=== PATIENT | female | born 1950 | race Caucasian/White ===

== ENCOUNTER 2017-04-04 20:28 | Observation (INO) | payer OTHER ==
[~2017-04-04] VITALS: Ht 167.6 cm; Wt 97.3 kg
[2017-04-04 20:43] VITALS: BP 204/114; PULSE 72; RESP 18; O2SAT 98
[2017-04-04] MEDS ORDERED: Labetalol 5 mg/mL 4 mL Inj IV PRN (21:55)
--- NOTE | 2017-04-04 22:02 | ED.REPORT ---
HPI-General Illness Date of Service Apr 04, 2017 ED Provider: Ry Robles MD A 66 year old female with a history of previous hypertension presents to the ED complaining of hypertension. The pt had a TIA yesterday characterized by left- sided facial numbness and some difficulty speaking. This lasted for approx 30 mins to one hour, but then she went to sleep. Upon waking, the symptoms had resolved. No notable alleviating or exacerbating factors. She had no other associated symptoms at that time. Today, however, she did notice that her blood pressure was elevated. In the ED, she now complains of a diffuse, mild, frontal headache (started gradually this afternoon), chest pressure, and one episode of diarrhea. The pt denies constipation, abdominal pain, fevers, chills , focal weakness, neck stiffness, shortness of breath or vision changes. Nursing Notes Stated Complaint: TIA,HIGH BP Chief Complaint: General Complaint Nursing Notes Reviewed: Yes Allergies: Coded Allergies: lisinopril (Verified Allergy, Unknown, 04/04/17) General Time Seen by MD: 21:47 Chief Complaint Other (Hypertension) Hx Obtained From: Patient Arrived By: Walk-in Sudden in Onset?: No Onset Occurred: 1 day ago Symptom Duration: Since onset Location: : Head Severity: Current: Pain level 3 out of 10 Recent Healthcare: No recent doctor visit, No recent hospitalization Similar Sx Previous: No Past Medical History Past Medical History hypertension Past Surgical History Reports: Family History cardiac disease (mother, unknown age) denies family history of bleeding disorders Smoking History Unknown if Ever Smoker Social History Alcohol Use: "Social" Other Social History: Good social support Ambulatory Status Independent Review of Systems difficulty speaking chest pressure hypertension denies neck stiffness Full Review of Systems Constitutional: Denies: Chills, Fever Eyes: Denies: Diplopia Ears / Nose / Throat: Denies: Throat pain, Throat swelling Respiratory: Denies: Non-productive cough, Shortness of breath Cardiovascular: Denies: Palpitations GI: Reports: Diarrhea, Denies: Abdominal pain, Constipation, Nausea, Vomiting Musculoskeletal: Denies: Back pain, Neck pain Hematologic: Denies Bruising Skin: Denies Itching, Denies Rash Allergy / Immune: Denies: Hives, Itching Neurologic: Reports: Headache, Numbness (left facial), Vision change, Denies: Focal weakness, Seizure, Shaking, Weakness Psychiatric: Denies: Change mental status Complete sys rev & neg: except as marked. Physical Exam Constitutional: Well-developed, well-nourished. Not diaphoretic. Head: Normocephalic and atraumatic. Mouth/Throat: Oropharynx is clear and moist. No oropharyngeal exudate. Eyes: EOM are normal. Pupils are equal, round, and reactive to light. Neck: Supple, no tracheal deviation. Cardiovascular: Normal rate, regular rhythm. Equal and intact distal pulses throughout. Pulmonary/Chest: Effort normal and breath sounds normal. No respiratory distress. Abdominal: Soft. No distension. There is no tenderness, rebound, or guarding. Bowel sounds present. Musculoskeletal: Range of motion grossly intact, moving all extremities. No edema or tenderness appreciated. Neurological: AOx3. Grossly nonfocal exam. Strength and sensation intact and equal to bilateral upper and lower extremities. Normal gait. Skin: Warm and dry, no rashes or pallor appreciated. Psychiatric: Appropriate mood and affect. Behavior appears normal. Vital Signs Vital Signs Date Time Temp Pulse Resp B/P Pulse Ox O2 Delivery O2 Flow Rate FiO2 04/05/17 00:15 73 14 189/117 96 Room Air 04/04/17 22:39 77 184/97 98 Room Air 04/04/17 20:43 36.6 72 18 204/114 98 Room Air Initial VS: Reviewed Interpretation & Diagnostics Lab Results Interpretation Result Diagram: 04/04/17224004/04/172240 Test 04/04/17 22:41 04/04/17 23:32 White Blood Count 4.3th/mm3 (3.8-10.1) Red Blood Count 4.60mil/mm3 (3.90-5.20) Hemoglobin 14.0g/dL (12.0-15.6) Hematocrit 41.4% (35.0-46.0) Mean Corpuscular Volume 90.0fL (81-100) Mean Corpuscular Hemoglobin 30.4pg (27.0-35.0) Mean Corpuscular Hemoglobin Concent 33.8% (32.0-37.0) Red Cell Distribution Width 12.8% (12.3-15.4) Platelet Count 176bil/L (150-400) Neutrophils (%) (Auto) 45.5% (40-74) Lymphocytes (%) (Auto) 40.7% (14-46) Monocytes (%) (Auto) 11.5% (4-12) Eosinophils (%) (Auto) 1.9% (0-5) Basophils (%) (Auto) 0.2% (0-3) Prothrombin Time 10.0sec (8.1-12.5) Prothromb Time International Ratio 0.94ratio Activated Partial Thromboplast Time 27.1sec (22.8-33.0) Sodium Level 139mEq/L (134-144) Potassium Level 3.7mEq/L (3.5-5.2) Chloride Level 101mEq/L (97-108) Carbon Dioxide Level 23mmol/L (18-29) Blood Urea Nitrogen 22mg/dL (8-27) Creatinine 0.63mg/dL (0.57-1.00) Estimat Glomerular Filtration Rate 136mL/min (>59) Glucose Level 100mg/dL (60-99) Calcium Level 9.5mg/dL (8.5-10.1) Total Bilirubin 0.3mg/dL (0.0-1.2) Aspartate Amino Transf (AST/SGOT) 30U/L (0-50) Alanine Aminotransferase (ALT/SGPT) 38U/L (0-32) Alkaline Phosphatase 76U/L (25-165) Troponin T 0.010ug/L (0.0-0.011) Total Protein 6.8g/dL (6.4-8.4) Albumin 4.2g/dL (3.4-5.0) Urine Color Straw (YELLOW) Urine Appearance Slightly cloudy Urine pH 6.0 (5.0-8.0) Urine Specific Lawrence 1.017 (1.003-1.035) Urine Protein Negativemg/dL (NEG,TRACE) Urine Glucose (UA) Negativemg/dL (NEGATIVE) Urine Ketones Negativemg/dL (NEGATIVE) Urine Occult Blood Trace (NEGATIVE) Urine Nitrite Negative (NEGATIVE) Urine Bilirubin Negative (NEGATIVE) Urine Urobilinogen Normalmg/dL (NORMAL) Urine Leukocyte Esterase Negative (NEGATIVE) Urine RBC 0-2/hpf (0-2) Urine WBC 0-5/hpf (0-5) Urine Epithelial Cells Many/hpf (NONE-MOD) Urine Crystals None seen (NONE SEEN) Urine Bacteria Few/hpf (NONE-FEW) Urine Hyaline Casts None/lpf (NONE) Urine Granular Casts None seen (NONE SEEN) Urine Waxy Casts None seen (NONE SEEN) Urine Red Blood Cell Casts None seen (NONE SEEN) Urine White Blood Cell Casts None seen (NONE SEEN) Urine Mucus Present (None Seen) Urine Trichomonas None seen (NONE SEEN) Urine Yeast None (NONE SEEN) Urinalysis Comment None Urine Culture Reflexed Not indicated ECG Interpretation ECG Interpretation: sinus rhythm with a rate of 65 LVH with secondary repolarization abnormality Time: 21:20 Interpreted by: ED physician X-Ray Chest Interpretation Chest Xray Interpretation: no acute cardiopulmonary process Interpretation / Wet Read by: Wet read ED physician CT Head Interpretation No acute intracranial processes. Interpretation / Wet Read by: Interpret - Radiologist Re-Eval/Medical Decision Med Decision/Clinical Course In summary, 66-year-old female presenting to the ED for evaluation of left- sided facial numbness and difficulty speaking last night, since resolved. Differential includes CVA, TIA, metabolic abnormality, hypertensive emergency, Alcaraz's palsy, temporal arteritis. Patient's left-sided facial numbness and difficulty speaking have completely resolved upon arrival here in the ED. She has a grossly normal neurologic examination. No temporal artery tenderness, no vision changes; no clinical suspicion for temporal arteritis at this time. She has had some mild chest pressure here in the ED; troponin negative, EKG demonstrates sinus rhythm with no acute ischemic changes - she does have what appears to be LVH with a secondary repolarization abnormality. CBC and CMP grossly within normal limits. Urinalysis with no evidence of infection. Chest x-ray negative. Head CT negative for acute intracranial abnormality. She was hypertensive here in the ED; order for labetalol placed. Patient also given morphine for symptoms with some improvement. Given the above, plan admission for further workup, management, and evaluation. Patient agreeable to the plan as stated, no further questions. Time of Eval: 23:51 Re-Evaluation/Progress Note: Pt rechecked, who is resting. The diagnosis and plan for admission are discussed. The pt understands and agrees with the plan. All questions are addressed at this time. Consultation : Referral / Consult Name: Marni Whitfield DO Consulted With: Hospitalist Call Returned at: 23:43 Java Scala Developer: Agrees with eval, Agrees with plan, Accepts admit Note: Spoke with Dr. Whitfield, hospitalist, regarding pt's case. Dr. Whitfield agrees with the evaluation and agrees to admit the pt. Counseled Regarding: Diagnosis, Lab results, Need for admission Discharge & Departure Primary Impression: TIA (transient ischemic attack) Transient cerebral ischemia type: unspecified Qualified Code: G45.9 - Transient cerebral ischemic attack, unspecified Disposition: ADMITTED TO HOSPITAL Discharge Condition All VS Reviewed: Yes Condition: Stable Referrals: [facility] Scribe Attestation Portions of this note were transcribed by Tyrell Duarte. I, Dr. Robles personally performed the history, physical exam and medical decision-making; I reviewed and confirmed the accuracy of the information in the transcribed note. copies to: [facility] Ry Robles MD Apr 04, 2017 22:02 TYRELL DUARTE Apr 04, 2017 23:49
[2017-04-04 22:39] VITALS: BP 184/97; PULSE 77; O2SAT 98
[2017-04-04 22:45] LABS: BASOPHILS % (AUTO) 0.2 % (0-3); EOSINOPHILS % (AUTO) 1.9 % (0-5); MONOCYTES % (AUTO) 11.5 % (4-12); Mean Corpuscular Hemoglobin 30.4 pg (27.0-35.0); NEUTROPHILS % (AUTO) 45.5 % (40-74); Platelet Count 176 bil/L (150-400)
[2017-04-04 23:02] LABS: INR 0.94 ratio
[2017-04-04 23:12] LABS: TROPONIN T 0.01 ug/L (0.0-0.011)
[2017-04-05] VITALS (12 sets, daily range): BP systolic 142–189; BP diastolic 82–117; PULSE 60–77; RESP 14–18; O2SAT 94–97
[2017-04-05 00:14] LABS: APPEARANCE,URINE SLIGHTLY CLOUDY (CLEAR,HAZY); COLOR,URINE STRAW (YELLOW)
[2017-04-05 00:16] LABS: OCCULT BLOOD,URINE TRACE (NEGATIVE); UROBILINOGEN,URINE NORMAL (NORMAL)
[2017-04-05] MEDS ORDERED: Polyethylene Glycol (PEG) 17 Gm Powder PO PRN (01:35)
[2017-04-05] MEDS ORDERED: Labetalol 5 mg/mL 20 mL Inj IVPUSH PRN (01:35)
[2017-04-05] MEDS ORDERED: Ondansetron 2 mg/mL 2 mL Inj IVPUSH PRN (01:35)
[2017-04-05] MEDS ORDERED: Alum-Mag Hydrox-Simeth 30 mL Suspension PO PRN (01:35)
[2017-04-05] MEDS: 0.9% Sodium Chloride 1,000 ML IV SCH ×2 (02:20→11:01)
[2017-04-05] MEDS: Heparin 5,000 Unit/mL Inj SUBQ SCH ×3 (02:21→16:58)
[2017-04-05] MEDS ORDERED: CITA40TA PO (02:58)
--- NOTE | 2017-04-05 03:16 | NUR ---
Admit Patient arrived to [facility] around 0210 via wheelchair. Able to stand and walk to OSC bed independently. A&Ox4, answering questions appropriately. Neuro checks WNL, equal movement in extremities. Face symmetrical. Speech clear. Swallow screen performed and passed. Patient placed on puree diet/ HTL per protocol. Swallow evaluation to be performed in AM. Denies numbness/tingling. PVR performed= 53 ml. HOB at 30 degrees. Admit done. Part of med rec completed, need to follow up on Levothyroxine dose in AM. Tele placed- SR 60s. Blood sugar= 121.
--- NOTE | 2017-04-05 05:34 | PCM.HPMED ---
Subjective Date of Service Apr 05, 2017 Primary Provider: Admitting Physician: Marni Whitfield DO Primary Care Physician: Nathan Attending Physician: Jackson Fields MD Chief Complaint: Left-sided numbness, hypertension History of Present Illness: 66-year-old woman with previous history of hypertension reported to the emergency department after experiencing left-sided face numbness and difficulty speaking and mild confusion yesterday, went to sleep and after waking up noticed the symptoms are nearly completely resolved, she discussed with her friend in the medical field her symptoms he told her that it sounded like she had a TIA, patient read what TIA was in immediately came to the emergency department. She additionally states that she had elevated blood pressure at home which is unusual for her. She had new onset diffuse mild frontal headaches , worsening of her tinnitus, some tightness in her chest, one episode of diarrhea. Patient denies any constipation, abdominal pain, fever chills, focal weakness, neck stiffness, shortness of breath, or vision changes. Previous unilateral symptoms have resolved. Vitals on presentation 36.6, 72, 18, 204/14 Hematology is unremarkable, chemistry unremarkable Troponin 0.01 INR 0.94 Urinalysis was negative for signs of infection, trace "occult blood", 0-2 red blood cells on microscopy Chest x-ray and head CT noncontrast did not show any acute process. EKG rate 65, sinus rhythm, normal axis, TN interval 159, QTC 393, no signs of acute ischemia or infarct." LVH with secondary repolarization abnormality" Patient was admitted for transient ischemic attack and uncontrolled hypertension. Review of Systems: A comprehensive review of systems was conducted with the patient and found to be negative except as above in the history of presenting illness. Allergies Coded Allergies: bee venom protein (honey bee) (Verified Allergy, Unknown, 04/05/17) lisinopril (Verified Allergy, Unknown, 04/04/17) Home Medications Citalopram 40 mg daily Levothyroxine unknown dose PMH Hypertension Depression Tinnitus Surgical History "Tummy tuck" 20 years ago 33 years ago Family History Mother had cancer "all over" at age 86 Father had lung cancer and at age 65 Social History Hx Alcohol Use: Yes (1-2 glasses of wine every night ) Hx Substance Use: No Hx Tobacco Use: Yes Smoking Status: Former Smoker Exam Vital Signs Vital Sign - Last Date Time Temp Pulse Resp B/P Pulse Ox O2 Delivery O2 Flow Rate FiO2 04/05/17 02:26 66 04/05/17 02:10 36.7 16 168/97 97 Room Air Exam General: Sitting at edge of bed no apparent distress. HEENT: Normocephalic, atraumatic, EOMI grossly, Cardiovascular: Regular rate and rhythm, no clicks murmurs rubs, peripheral pulses 2/4 equal bilaterally Pulmonary: Clear to auscultation bilaterally, no W/R/R. Abdominal: Soft to palpation, bowel sounds present 4, no hepatosplenomegaly. Negative rebound. Extremities: No edema appreciated. No tenderness, asymmetry. Neuro: Neurologically grossly intact, strength is equal bilaterally upper and lower extremities. Sensation grossly intact to face upper and lower extremities. Reflexes 2/4 patellar. Cranial nerves II through XII intact. MSK: Able to move extremities on their own volition, strength 5 out of 5 equal bilaterally to upper and lower extremities. Psychiatric: Alert and oriented 4, appropriate and congruent affect. Lab and Diagnostics Result Diagram: 04/04/17224004/04/172240 Assessment & Plan 66-year-old woman with history of hypertension had episodes of unilateral, left- sided facial numbness, some weakness in the left side of her body, confusion, and difficulty speaking, presented after nearly resolution of the symptoms, found to be hypertensive. She is admitted for TIA evaluation. Acute transient ischemic attack, POA, active Left-sided weakness, facial numbness, dizziness, history of hypertension CT without contrast negative MR stroke protocol tomorrow morning Carotid duplex ultrasound tomorrow morning Echocardiogram tomorrow morning Atorvastatin 10 mg by mouth ASA 324 mg by mouth daily, first dose given in ER HGBA1c and lipid panel pending Acute uncontrolled hypertension, chronicity unknown, present on admission, improving Initially 204/114, decrease to be stable in the 160s over 90s No antihypertensives given in the emergency department, patient received morphine. Re-evaluate in the morning, no sign of end organ damage, Allergy to Lisinopril reported. Chronic depression, present on admission, active Continue home Celexa 40 mg daily Chronic hypothyroidism, present on admission, active Patient is unsure of dose, "I miss my dose all the time is not going to be a problem." Patient admitted to observation status with anticipated length of stay less than 24 hours, this is based on assessment, diagnosis, treatment, and anticipated adverse events. DVT prophylaxis with subcutaneous heparin GI prophylaxis not indicated Pain management, address as needed. CODE STATUS discussed, patient wishes to remain full code Pain Evaluation: Adequate Pain Control GI Prophylaxis: Not indicated VTE Prophylaxis: Sub-Q Heparin (Unfractionated) Resuscitation Status: CPR: Attempt Resuscitation Attending Statement The patient was seen and examined together with house staff on 04/05/2017 and I agree with the history, exam and plan as outlined in the note above. Zaire Mckeon DO Apr 05, 2017 05:34 Marni Whitfield DO Apr 05, 2017 06:10
--- NOTE | 2017-04-05 07:24 | DRSVH ---
PROCEDURE: CT BRAIN WITHOUT CONTRAST ([id number]) INDICATIONS: Stroke TECHNIQUE: Noncontrast 4.5 mm thick angled axial sections acquired from the foramen magnum to the vertex, with c oronal reformats. COMPARISON: None. FINDINGS: Image quality: Excellent. CSF spaces: Basal cisterns are patent. No extra-axial fluid collections. Ventricles are normal in size and shape. Brain: No midline shift. No intracranial masses or hemorrhage. Romeo-white matter interface is norm al. Skull and face: Calvarium and visualized facial bones are intact, without suspicious lesions. Sinuses: Visualized sinuses and mastoids are clear. IMPRESSION: 1. No CT evidence of acute intracranial pathology. 2. There are no discrepancies with the preliminary report. Dictated by: Praneeth Vernon M.D. on 04/05/2017 at 7:21 Approved by: Praneeth Vernon M.D. on 04/05/2017 at 7:23
--- NOTE | 2017-04-05 08:23 | NUR ---
Evaluation completed. Please go to "Notes" then click on "Assessments and Notes" (bottom left corner of screen). Then select appropriate discipline tab on top of screen.
[2017-04-05] MEDS ORDERED: ALPRAZolam 0.5 mg Tablet PO ONE ×4 (08:55→21:40)
[2017-04-05] MEDS ORDERED: LEVO50TA6 PO (10:39)
--- NOTE | 2017-04-05 10:44 | DRSVH ---
PROCEDURE: X-RAY CHEST ONE VIEW, PORTABLE ([id number]) INDICATIONS: tia, hypertension TECHNIQUE: One view of the chest was acquired. COMPARISON: None. FINDINGS: Surgical changes and devices: None. Lungs and pleura: No pleural effusions or pneumothorax. Lungs are clear. Mediastinum: Mediastinal contours appear normal. Heart size is normal. Bones and chest wall: No suspicious bony lesions. Overlying soft tissues appear unremarkable. IMPRESSION: No acute cardiopulmonary disease. Dictated by: Aaron Arevalo [facility] Interpreted: Nasim Fuentes MD on 04/05/2017 at 8:45 Approved by: Nasim Fuentes M.D. on 04/05/2017 at 10:43
--- NOTE | 2017-04-05 11:49 | NUR ---
Evaluation completed. Please go to "Notes" then click on "Assessments and Notes" (bottom left corner of screen). Then select appropriate discipline tab on top of screen.
--- NOTE | 2017-04-05 13:16 | NUR ---
Social Work- Brief Note Data: EMR reviewed. Pt is a 66 year old female admitted 04/05/17 for TIA Hypertension per H&P. Pt's insurance is [employer]. Pt sees Alee Armstrong in [place] for her PCP. Pt discussed in multidisciplinary rounds, pt is likely to d/c tomorrow pending MRI, Echo. PT has recommended home. SW met with pt at bedside regarding d/c plan, pt alert and oriented x3. Pt resides in [place] in an apartment alone next door to her best friend. Pt is completely independent at ADLs and self-care. Pt has no DPOA on file, but SW requested pt bring in copy of DPOA. Pt confirmed that she will d/c home via POV. SW wrote d/c plan and phone number on whiteboard per H&P. SW will continue to follow. Assessment: Pt who is independent at baseline. Plan: Pt to d/c home via POV when medically ready. No d/c needs identified. SW will continue to follow. Elisabeth Mishra, SPRING TIER
--- NOTE | 2017-04-05 13:31 | NUR ---
Evaluation completed. Please go to "Notes" then click on "Assessments and Notes" (bottom left corner of screen). Then select appropriate discipline tab on top of screen.
--- NOTE | 2017-04-05 14:35 | DRSVH ---
[facility] [address] [place] [address] Echocardiogram Report Name: ALONDRA QUINTANA JStudy Date: 04/05/2017 Height: 66 in Hospital Exam Location: [facility] Weight: 215 lb Gender: Female BSA: 2.1 m2 : 1950 Age: 66 yrs BP: 151/82 mmHg Reason For Study: TIA Ordering Physician: HOSPITALIST [facility] Performed By: Aisha Gardiner [facility] Phys[facility] Interpret[facility] Summary Left ventricular wall thickness is mildly increased. Left ventricular systolic function is normal without focal wall motion abnormalities. The ejection fraction is estimated to be 60-65%. The right ventricle is normal size. The right ventricular systolic function is normal. The right ventricular systolic pressure is estimated at 33 mmHg assuming a right atrial pressure of 8 mm Hg. The left atrium is mildly dilated. The right atrium is normal in size. There is no significant valvular heart disease. No obvious source for cardioembolic stroke. Procedure: A two-dimensional transthoracic echocardiogram with color flow and Doppler was performed. The study quality was technically adequate. There is no prior echocardiogram noted for this patient. The patient was in normal sinus rhythm during the exam. Left Ventricle: The left ventricle is normal in size. Left ventricular wall thickness is mildly increased. Left ventricular systolic function is normal without focal wall motion abnormalities. The ejection fraction is estimated to be 60-65%. Right Ventricle: The right ventricle is normal size. The right ventricular systolic function is normal. Atria: The left atrium is mildly dilated. The right atrium is normal in size. The interatrial septum is intact with no evidence for an atrial septal defect. Mitral Valve: The mitral valve leaflets appear mildly thickened, but open well. There is mild mitral annular calcification. There is trace mitral regurgitation. Aortic Valve: The aortic valve is not well visualized. The aortic valve is slightly calcified. No aortic regurgitation is present. Tricuspid Valve: The tricuspid valve leaflets are thin and pliable. There is trace tricuspid regurgitation. The right ventricular systolic pressure is estimated at 33 mmHg assuming a right atrial pressure of 8 mm Hg. Pulmonic Valve: The pulmonic valve is not well visualized. There is a trace or physiologic amount of pulmonic regurgitation. There is no significant valvular heart disease. Great Vessels: The ascending aorta could not be visualized. The IVC is of normal diameter and collapses less than 50% with a sniff. This suggests a right atrial pressure of 8 mm Hg. Pericardium/ Pleura There is no pericardial effusion. There is an anterior echo-free space consistent with a fat pad. There is no pleural effusion. MMode/2D Measurements & Calculations LVIDd: 5.5 cm RA long axis: 4.4 cm LVOT diam LVIDs: 3.6 cmLA A2 area: 23.2 cm : 2.5 cm FS: 35.1 % LA A4 area: 23.2 cm RA area: 8.7 cm IVSd: 1.2 cm LA length (vol): 5.7 cm RA vol: 14.5 ml LVPWd: 1.1 cmLA vol: 80.4 ml RA : 7.0 ml/m2 LA vol index: 39.0 ml/m IVC diam: 1.6 cm LVAd ap4 LV reese. diameter/BSA LV sys. diameter/BSA RVD1 (basal) : 34.3 cm (cm/m^2): 2.7 (cm/m^2): 1.7 : 3.8 cm LVAs ap4 : 17.5 cm LVLs ap4 : 6.4 cm TAPSE: 2.3 cm Doppler Measurements & Calculations Ao V2 max MV E max adrian MV E/A: 0.71 TR max adrian : 181.9 cm/sec : 87.7 cm/sec : 247.9 cm/sec Ao max PG MV A max adrian TR max P.6 mmHg : 13.2 mmHg : 123.9 cm/sec Ao mean PG LVOT Max Adrian : 142.0 cm/sec KAITLIN(I,D): 4.6 cm sev ratio: 0.93 MV dec time Ao V2 mean LV V1 max PG KAITLIN indexed to BSA : 0.27 sec : 110.8 cm/sec (cm^2/m^2): 2.2 Ao V2 VTI: 34.5 cm LV V1 VTI : 32.0 cm KAITLIN(V,D): 3.9 cm2 Reading Physician:HAILEE
--- NOTE | 2017-04-05 17:05 | DRSVH ---
PROCEDURE: US BILATERAL DUPLEX DOPPLER IMAGING OF THE CAROTIDS ([id number]) INDICATIONS: R/O Carotid Disease if no MRA or CTA Neck TECHNIQUE: Color and pulse Doppler interrogation was performed of both carotid systems, with image documentation and velocity measurements. COMPARISON: None. FINDINGS: All stenosis calculations are based on NASCET criteria. Right side: Brachial blood pressure: 161/95 mm Hg. Common Carotid Artery(Distal) PSV: 72.20 cm/s Internal Carotid Artery PSV- Proximal: 40 cm/s Mid-lon cm/s Distal: 39.60 cm/s EDV - Proximal: 14.50 cm/s Mid-lon.60 cm/s Distal: 12.70 cm/s External Carotid Artery(Proximal) PSV: 57.70 cm/s ICA/CCA PSV ratio: 0.6 Romeo scale imaging description: Minimal plaque. Percent internal carotid artery stenosis: Less than 50%. Vertebral artery: Flow direction is antegrade. Left side: Brachial blood pressure: 154/96 mm Hg. Common Carotid Artery(Distal) PSV: 78.70 cm/s Internal Carotid Artery PSV - Proximal: 72.40 cm/s Mid-lon.80 cm/s Distal: 69 cm/s EDV - Proximal: 21 cm/s Mid-lon.80 cm/s Distal: 26.50 cm/s External Carotid Artery(Proximal) PSV: 62.60 cm/s ICA/CCA PSV ratio: 0.9 Romeo scale imaging description: Minimal plaque. Percent internal carotid artery stenosis: Less than 50%. Vertebral artery: Flow direction is antegrade. IMPRESSION: Less than 50% bilateral internal carotid artery stenosis. Hypertension at time of exam. Dictated by: Aaron RAHSID Interpreted: Pam Partida MD on 04/05/2017 at 14:49 Approved by: Pam Partida M.D. on 04/05/2017 at 17:04
--- NOTE | 2017-04-05 18:30 | NUR ---
Neuro checks/MRI Neuro checks stable, negative. MRI not done yet. 2 phone calls to lawn technician, assured both times that pt would get her MRI this evening. MRI aware that pre-meds need to be given.
[2017-04-06] MEDS: Heparin 5,000 Unit/mL Inj SUBQ SCH ×2 (00:38→08:32)
[2017-04-06 00:40] VITALS: BP 160/83; PULSE 69; RESP 20; O2SAT 94
[2017-04-06 05:00] VITALS: BP 147/90; PULSE 66; RESP 16; O2SAT 96
--- NOTE | 2017-04-06 05:34 | NUR ---
Anxiety / MRI Pt requested increase to 1mg Xanax before attempting MRI which was given 1/2 hour before arrival for transport; however, pt did not feel it had helped enough to alleviate anxiety and was unable to tolerate MRI. MRI called again later but pt still did not feel the medication had done enough to relieve her anxiety. Stated she would like to follow-up with outpt MRI if possible. All neuro checks WNL, HTN improved. Hourly rounding ongoing.
[2017-04-06 08:30] VITALS: BP 137/84; PULSE 69; RESP 18; O2SAT 94
[2017-04-06 09:08] VITALS: PULSE 65
[2017-04-06] MEDS ORDERED: AMLO5TAB2 PO (09:22)
[2017-04-06] MEDS ORDERED: ATOR10TA66 PO (09:22)
[2017-04-06] MEDS ORDERED: ASPI-973 PO (09:22)
--- NOTE | 2017-04-06 09:25 | PCM.DIMED ---
Discharge Instructions Date of Service Apr 06, 2017 Dates of Hospitalization Apr 05, 2017 at 00:31 Discharge Diagnosis Discharge Diagnosis TIA Medication Instructions Additional med instructions Please take amlodipine 5mg for your blood pressure, Aspirin 81mg daily for stroke prevention and [id number] daily for cholesterol Diet Discharge Diet: Low fat, Low Sodium, Heart Healthy Call your provider Call your provider for: Weakness (unilateral) Patient Instructions Patient Instructions You were hospitalized with symptoms concerning for stroke. Workups including CT of brain and echocardiogram didn't show any evidence of stroke. You remained asymptomatic throughout hospitalization. Since you couldn't tolerate MRI and resolved symptoms, this was recommended outpatient if your develop symptoms again. Please follow medication instruction as above. Please follow with your primary doctor Nitin Little in one week as scheduled Follow-up with PCP in: 1 week Daniel Barrett MD Apr 06, 2017 09:12
--- NOTE | 2017-04-06 10:57 | NUR ---
Discharge To home via own private vehicle at 10:55. Steady ambulation to door. Pt expresses understanding of all discharge instructions and carenotes, including followup, s/s stroke and medications. Rx given. IV discontinued intact. All belongings sent with pt.
--- NOTE | 2017-04-06 15:41 | PCM.DC.MED ---
Discharge Summary Date of Service Apr 06, 2017 Dates of Hospitalization Date of Hospital Admission Apr 05, 2017 at 00:31 Date of Discharge: Apr 06, 2017 Providers: Admitting Physician: Marni Whitfield DO Primary Care Physician: Nathan Attending Physician: Daniel Gautam MD Diagnosis at Time of Discharge Diagnosis at Time of Discharge acute dx TIA hypertensive crisis chronic dx. depression, hypothyroidism Procedures XRay, CTs & MRIs PROCEDURE: CT BRAIN WITHOUT CONTRAST ([id number]) INDICATIONS: Stroke TECHNIQUE: Noncontrast 4.5 mm thick angled axial sections acquired from the foramen magnum to the vertex, with coronal reformats. COMPARISON: None. FINDINGS: Image quality: Excellent. CSF spaces: Basal cisterns are patent. No extra-axial fluid collections. Ventricles are normal in size and shape. Brain: No midline shift. No intracranial masses or hemorrhage. Romeo-white matter interface is normal. Skull and face: Calvarium and visualized facial bones are intact, without suspicious lesions. Sinuses: Visualized sinuses and mastoids are clear. IMPRESSION: 1. No CT evidence of acute intracranial pathology. 2. There are no discrepancies with the preliminary report. Dictated by: Praneeth Vernon M.D. on 04/05/2017 at 7:21 Approved by: Praneeth Vernon M.D. on 04/05/2017 at 7:23 Other Diagnostics PROCEDURE: US BILATERAL DUPLEX DOPPLER IMAGING OF THE CAROTIDS ([id number]) INDICATIONS: R/O Carotid Disease if no MRA or CTA Neck TECHNIQUE: Color and pulse Doppler interrogation was performed of both carotid systems, with image documentation and velocity measurements. COMPARISON: None. FINDINGS: All stenosis calculations are based on NASCET criteria. Right side: Brachial blood pressure: 161/95 mm Hg. Common Carotid Artery(Distal) PSV: 72.20 cm/s Internal Carotid Artery PSV- Proximal: 40 cm/s Mid-lon cm/s Distal: 39.60 cm/s EDV - Proximal: 14.50 cm/s Mid-lon.60 cm/s Distal: 12.70 cm/s External Carotid Artery(Proximal) PSV: 57.70 cm/s ICA/CCA PSV ratio: 0.6 Romeo scale imaging description: Minimal plaque. Percent internal carotid artery stenosis: Less than 50%. Vertebral artery: Flow direction is antegrade. Left side: Brachial blood pressure: 154/96 mm Hg. Common Carotid Artery(Distal) PSV: 78.70 cm/s Internal Carotid Artery PSV - Proximal: 72.40 cm/s Mid-lon.80 cm/s Distal: 69 cm/s EDV - Proximal: 21 cm/s Mid-lon.80 cm/s Distal: 26.50 cm/s External Carotid Artery(Proximal) PSV: 62.60 cm/s ICA/CCA PSV ratio: 0.9 Romeo scale imaging description: Minimal plaque. Percent internal carotid artery stenosis: Less than 50%. Vertebral artery: Flow direction is antegrade. IMPRESSION: Less than 50% bilateral internal carotid artery stenosis. Hypertension at time of exam. Dictated by: Aaron PA Interpreted: Pam Partida MD on 04/05/2017 at 14: 49 Approved by: Pam Partida M.D. on 04/05/2017 at 17:04 Brief History HPI obtained by Dr. Pickard on 04/05 66-year-old woman with previous history of hypertension reported to the emergency department after experiencing left-sided face numbness and difficulty speaking and mild confusion yesterday, went to sleep and after waking up noticed the symptoms are nearly completely resolved, she discussed with her friend in the medical field her symptoms he told her that it sounded like she had a TIA, patient read what TIA was in immediately came to the emergency department. She additionally states that she had elevated blood pressure at home which is unusual for her. She had new onset diffuse mild frontal headaches , worsening of her tinnitus, some tightness in her chest, one episode of diarrhea. Patient denies any constipation, abdominal pain, fever chills, focal weakness, neck stiffness, shortness of breath, or vision changes. Previous unilateral symptoms have resolved. Vitals on presentation 36.6, 72, 18, 204/14 Hematology is unremarkable, chemistry unremarkable Troponin 0.01 INR 0.94 Urinalysis was negative for signs of infection, trace "occult blood", 0-2 red blood cells on microscopy Chest x-ray and head CT noncontrast did not show any acute process. EKG rate 65, sinus rhythm, normal axis, AL interval 159, QTC 393, no signs of acute ischemia or infarct." LVH with secondary repolarization abnormality" Patient was admitted for transient ischemic attack and uncontrolled hypertension. Hospital Course 66-year-old woman with history of hypertension had episodes of unilateral, left- sided facial numbness, some weakness in the left side of her body, confusion, and difficulty speaking, presented after nearly resolution of the symptoms, found to be hypertensive. She is admitted for TIA evaluation. acute dx Acute transient ischemic attack, pt presented with Left-sided weakness, facial numbness, dizziness, history of hypertension, which was concerning for stroke. CTH without contrast negative. MR stroke protocol was ordered but pt couldn't tolerate. TTE didn't show vegetation or thrombus any embolic sources. Carotid US was not remarkable for stenosis. Patient tolerated aspirin 324mg, lipitor 10mg. Patient was restarted on her [id number](previously on). As pt remained asymptomatic, pt was encouraged to control her risks factors with new regimen: aspirin, statin, BP control. Acute uncontrolled hypertension, Initially 204/114, decrease to be stable in the 160s over 90s. pt used to be on Amlodipine, but was diet controlled, likely noncompliant to meds. initial high BP could be trigger for TIA or the result of TIA, which eventually controlled with resumed amlodipine 5mg, pt agreed to continue amlodipine and maintain healthy lifestyle chronic dx. Chronic depression, continue home Celexa 40 mg daily Chronic hypothyroidism, not on meds 0 Exam Vital Signs (Last) Date Time Temp Pulse Resp B/P Pulse Ox O2 Delivery O2 Flow Rate FiO2 04/06/17 09:08 65 04/06/17 08:30 36.7 18 137/84 94 Room Air Exam pt was examined on the day of d/c, neurologically intact Test 04/04/17 22:41 04/04/17 23:32 04/06/17 05:05 White Blood Count 4.3th/mm3 (3.8-10.1) Red Blood Count 4.60mil/mm3 (3.90-5.20) Hemoglobin 14.0g/dL (12.0-15.6) Hematocrit 41.4% (35.0-46.0) Mean Corpuscular Volume 90.0fL (81-100) Mean Corpuscular Hemoglobin 30.4pg (27.0-35.0) Mean Corpuscular Hemoglobin Concent 33.8% (32.0-37.0) Red Cell Distribution Width 12.8% (12.3-15.4) Platelet Count 176bil/L (150-400) Neutrophils (%) (Auto) 45.5% (40-74) Lymphocytes (%) (Auto) 40.7% (14-46) Monocytes (%) (Auto) 11.5% (4-12) Eosinophils (%) (Auto) 1.9% (0-5) Basophils (%) (Auto) 0.2% (0-3) Prothrombin Time 10.0sec (8.1-12.5) Prothromb Time International Ratio 0.94ratio Activated Partial Thromboplast Time 27.1sec (22.8-33.0) Sodium Level 139mEq/L (134-144) Potassium Level 3.7mEq/L (3.5-5.2) Chloride Level 101mEq/L (97-108) Carbon Dioxide Level 23mmol/L (18-29) Blood Urea Nitrogen 22mg/dL (8-27) Creatinine 0.63mg/dL (0.57-1.00) Estimat Glomerular Filtration Rate 136mL/min (>59) Glucose Level 100mg/dL (60-99) Calcium Level 9.5mg/dL (8.5-10.1) Total Bilirubin 0.3mg/dL (0.0-1.2) Aspartate Amino Transf (AST/SGOT) 30U/L (0-50) Alanine Aminotransferase (ALT/SGPT) 38U/L (0-32) Alkaline Phosphatase 76U/L (25-165) Troponin T 0.010ug/L (0.0-0.011) Total Protein 6.8g/dL (6.4-8.4) Albumin 4.2g/dL (3.4-5.0) Triglycerides Level 228mg/dL (0-149) Cholesterol Level 190mg/dL (100-199) LDL Cholesterol, Calculated 88.400mg/dL (0-99) VLDL Cholesterol 45.600mg/dL HDL Cholesterol 56mg/dL (>39) Cholesterol/HDL Ratio 3.39 (0.0-4.4) Urine Color Straw (YELLOW) Urine Appearance Slightly cloudy Urine pH 6.0 (5.0-8.0) Urine Specific [place] 1.017 (1.003-1.035) Urine Protein Negativemg/dL (NEG,TRACE) Urine Glucose (UA) Negativemg/dL (NEGATIVE) Urine Ketones Negativemg/dL (NEGATIVE) Urine Occult Blood Trace (NEGATIVE) Urine Nitrite Negative (NEGATIVE) Urine Bilirubin Negative (NEGATIVE) Urine Urobilinogen Normalmg/dL (NORMAL) Urine Leukocyte Esterase Negative (NEGATIVE) Urine RBC 0-2/hpf (0-2) Urine WBC 0-5/hpf (0-5) Urine Epithelial Cells Many/hpf (NONE-MOD) Urine Crystals None seen (NONE SEEN) Urine Bacteria Few/hpf (NONE-FEW) Urine Hyaline Casts None/lpf (NONE) Urine Granular Casts None seen (NONE SEEN) Urine Waxy Casts None seen (NONE SEEN) Urine Red Blood Cell Casts None seen (NONE SEEN) Urine White Blood Cell Casts None seen (NONE SEEN) Urine Mucus Present (None Seen) Urine Trichomonas None seen (NONE SEEN) Urine Yeast None (NONE SEEN) Urinalysis Comment None Urine Culture Reflexed Not indicated Discharge Medications Discharge Medications Amlodipine (Amlodipine) 5 Mg Tablet 5 MG PO DAILY Prescribed by: DANIEL GAUTAM MD Aspirin (Aspirin) 81 Mg Tablet 81 MG PO DAILY Prescribed by: DANIEL GAUTAM MD Atorvastatin Calcium (Atorvastatin Calcium) 10 Mg Tablet 10 MG PO HS Prescribed by: DANIEL GAUTAM MD Citalopram Hydrobromide (Celexa) 40 Mg Tablet 40 MG PO DAILY (Reported) Levothyroxine (Levothyroxine) 50 Mcg Tablet 50 MCG PO DAILY (Reported) Additional med instructions Please take amlodipine 5mg for your blood pressure, Aspirin 81mg daily for stroke prevention and [id number] daily for cholesterol Followup Plan Disposition: home Discharge Diet: Low fat, Low Sodium, Heart Healthy Patient Instructions You were hospitalized with symptoms concerning for stroke. Workups including CT of brain and echocardiogram didn't show any evidence of stroke. You remained asymptomatic throughout hospitalization. Since you couldn't tolerate MRI and resolved symptoms, this was recommended outpatient if your develop symptoms again. Please follow medication instruction as above. Please follow with your primary doctor Nitin Little in one week as scheduled Follow-up with PCP in: 1 week Time spent 65min Daniel Gautam MD Apr 06, 2017 15:35
== END 2017-04-06 10:50 | disposition home or self-care (01) ==
LOC: SED 20:28 → OSC 04-05 00:31
PROVIDERS: ADMIT Internal Medicine; ATTEND Internal Medicine
DX: G45.9 Transient cerebral ischemic attack, unspecified (principal); I16.9 Hypertensive crisis, unspecified; F32.9 Major depressive disorder, single episode, unspecified; E03.9 Hypothyroidism, unspecified; R20.0 Anesthesia of skin; R53.1 Weakness; Z88.8 Allergy status to other drugs, medicaments and biological substances
CPT/HCPCS: 36415; 70450; 71010; 80053; 80061; 81000; 83036; 84484; 85025; 85610; 85730; 92610; 93005; 93880; 96372; 96374; 97161; 99285; C8929; G0378; J1644; J2270; J7030